=== PATIENT | female | born 1960 | race Caucasian/White ===

== ENCOUNTER 2018-07-11 17:24 | Emergency (ER) | payer MEDICARE ==
[~2018-07-11] VITALS: Ht 162.6 cm; Wt 106.6 kg
[~2018-07-11 17:24] MED LIST: ASPIRIN81 MG PO; GLIMEPIRIDE2 MG PO; LANTUS 3ML100 UNITS/; LEVAQUIN500 MG PO; LYRICA100 MG PO; NOVOLOG MI100 UNITS/; PRAVASTATIN SOD80 MG PO; PREDNISONE10 MG PO; PROTONIX40 MG/ML PO; TOPROL XL25 MG PO; VASOTEC5 MG PO; Venlafaxine Hcl PO
[2018-07-11] MEDS ORDERED: HYDROCODONE/APAP 5MG-325MG TAB PO ONE (17:45)
--- NOTE | 2018-07-11 19:19 | Diagnostic Imaging Report ---
Exam: CT without contrast of the brain, face and cervical spine History: Fall, pain Comparison studies:None Technique: Axial images were obtained from the brain, face and cervical spine. Coronal and sagittal reconstructions obtained from the axial data. Dose modulation, iterative reconstruction, and/or weight based adjustment of the mA/kV was utilized to reduce the radiation dose to as low as reasonably achievable. Intravenous contrast: None Findings: Head CT: Scalp/skull: No abnormalities. No fractures, blastic or lytic lesions. Extra-axial spaces: No masses. No fluid collections. Brain sulci: Appropriate for age. Ventricles: Normal in size and configuration. No hydrocephalus. Parenchyma: Chronic lacunar infarct in the right corpus striatum. Mild hypodensities in the supratentorial white matter are small vessel ischemic changes. No masses, hemorrhage, or acute cortical vascular insults. Sellar/suprasellar region: No abnormalities Craniocervical junction: Patent foramen magnum. No Chiari one malformation. Maxillofacial CT: Soft tissues: Mild soft tissue swelling over the left supraorbital ridge and the left nasal ala. Bones: Small mildly displaced fracture along the anterior nasal bones. Chronic left lamina papyracea fracture deformity. Orbits: No abnormalities. Paranasal sinuses: Mild mucosal thickening in the bilateral anterior and posterior ethmoid air cells. Pneumatized secretions in the nasopharynx. Cervical spine CT: Airway: Patent. Fractures: No fractures. Soft tissues: No abnormalities. Atlantoaxial articulation: Intact. Alignment: Reversal of normal cervical lordosis at C5-C6. No scoliosis Cervicomedullary junction: No abnormalities. The foramen magnum is patent. Vertebrae: No infection or neoplasm. Degenerative changes: * Degenerated disc throughout the entire cervical spine, most prominent at C5-C6, C6-C7 and C7-T1 with small posterior disc osteophyte complexes. No canal stenosis. * Bilateral facet arthropathy throughout the entire cervical spine. Moderate bilateral facet arthropathy at C5-C6 and C6-C7 results in mild bilateral foraminal stenosis. IMPRESSION: Head CT: No acute abnormalities. Chronic findings: Chronic lacunar infarct in the right striatocapsular area and mild supratentorial microvascular ischemic changes. Facial CT: 1. Small minimally displaced nasal bone fractures. 2. Swelling over the left supraorbital ridge and left nasal ala. Cervical spine CT: 1. No acute cervical abnormalities. 2. Cannot adequately evaluate for ligament, spinal cord and or vascular abnormalities. Preliminary report dictated by Dr. Callie Gurrola, Neuroradiology Fellow, on 07/11/2018 at 1918 hours. A final report by the attending radiologist will follow. The images and preliminary report were reviewed and signed by Dr. Dolores Rolle, neuroradiology faculty, on 07/11/2018 at 1930 hours. Signed by: Dr. Dolores Rolle M.D. on 07/11/2018 7:31 PM
[2018-07-11 20:44] VITALS: BP 135/71
== END 2018-07-11 21:00 | disposition home or self-care (01) ==
LOC: ER 17:24
DX: S02.2XXA Fracture of nasal bones, initial encounter for closed fracture (principal); S00.83XA Contusion of other part of head, initial encounter; M54.2 Cervicalgia; S16.1XXA Strain of muscle, fascia and tendon at neck level, initial encounter; W01.0XXA Fall on same level from slipping, tripping and stumbling without subsequent striking against object, initial encounter; Y92.008 Other place in unspecified non-institutional (private) residence as the place of occurrence of the external cause; E11.9 Type 2 diabetes mellitus without complications; Z87.891 Personal history of nicotine dependence
CPT/HCPCS: 70450; 70486; 72125; 99283